=== PATIENT | male | born 1935 | race Caucasian/White ===

== ENCOUNTER 2017-01-17 18:34 | Observation (INO) | payer OTHER ==
[~2017-01-17] VITALS: Ht 193 cm; Wt 113.4 kg
[2017-01-17 19:42] LABS: Basophils # (auto) 0.1 uL; Basophils % (auto) 0.6 % (0.0-2.0); Eosinophils # (auto) 0.3 uL; Eosinophils % (auto) 3.4 % (0.0-7.0); Hematocrit 43.1 % (41.0-53.0); Hemoglobin 14.8 g/dL (13.5-17.5); Lymphocytes # (auto) 0.6 uL; Lymphocytes % (auto) 7.5 % (10.0-50.0); Mean Corpuscular Hemoglobin 29.1 pg (28.0-32.0); Mean Corpuscular Hgb Conc. 34.4 g/dL (32.0-36.0); Mean Corpuscular Volume 84.5 fL (80.0-100.0); Mean Platelet Volume 6.3 fL (6.9-10.8); Monocytes # (auto) 0.7 uL; Monocytes % (auto) 7.9 % (0.0-12.0); Neutrophils # (auto) 6.9 uL; Neutrophils % (auto) 80.6 % (37.0-80.0); Platelet Count (auto) 254 10^3/uL (140-450); Red Cell Distribution Width 14.6 % (11.8-14.3); White Blood Cell 8.5 10^3/uL (4.4-10.8)
[2017-01-17 20:00] LABS: Albumin 2.5 g/dL (3.4-5.0); Anion Gap 6 (5-15); Aspartate Aminotransferase 15 U/L (15-37); BUN/Creatinine Ratio 15.4; Blood Urea Nitrogen 8 mg/dL (7-18); Calcium 8.6 mg/dL (8.5-10.1); Carbon Dioxide 31 mmol/L (21-32); Chloride 95 mmol/L (98-107); GFR African American 195 mL/min; GFR Non-African American 161 mL/min; Glucose 107 mg/dL (74-106); Potassium 3.5 mmol/L (3.5-5.1); Sodium 132 mmol/L (136-145)
[2017-01-17 20:11] LABS: Alkaline Phosphatase 80 U/L (45-117); Bilirubin, Total 0.6 mg/dL (0.2-1.0); Total Protein 7.5 g/dL (6.4-8.2)
[2017-01-17] MEDS ORDERED: cefTRIAXone 1GM/10ml IVPUSH 10 ML IV ONE (22:00)
[2017-01-17] MEDS ORDERED: [UNRECOGNIZED DRUG - CODE] PO (23:55)
[2017-01-17] MEDS ORDERED: CALC0.25 PO (23:55)
[2017-01-17] MEDS ORDERED: ASPI-231 PO (23:55)
[2017-01-17] MEDS ORDERED: POTA10TA51 PO (23:56)
[2017-01-17] MEDS ORDERED: CHOL200031 PO (23:58)
[2017-01-17] MEDS ORDERED: MET50T PO (23:58)
[2017-01-17] MEDS ORDERED: FURO40TA4 PO (23:58)
[2017-01-18 01:28] LABS: Magnesium 2.2 mg/dL (1.6-2.6)
[2017-01-18] MEDS ORDERED: DOXYCYCLINE HYC 100MG/250ML 250 ML IV ONE (01:45)
[2017-01-18 03:14] LABS: Temperature: 21.9 C (20.0-25.0)
[2017-01-18 05:19] VITALS: BP 122/61
== END 2017-01-18 05:45 | disposition home or self-care (01) | DRG 194 ==
LOC: ER 18:50 → OVERFLOW 20:50 → ER 01-18 05:42
PROVIDERS: ADMIT Family Medicine; ATTEND Family Medicine
DX: J18.1 Lobar pneumonia, unspecified organism (principal); E87.1 Hypo-osmolality and hyponatremia; I11.0 Hypertensive heart disease with heart failure; I50.9 Heart failure, unspecified; Z86.73 Personal history of transient ischemic attack (TIA), and cerebral infarction without residual deficits
CPT/HCPCS: 36415; 71010; 80053; 83605; 83735; 83880; 84484; 85025; 87040; 87077; 87186; 93005; 96365; 96366; 96375; 99285; G0378; J3490